=== PATIENT | male | born 1955 | race Caucasian/White ===

== ENCOUNTER 2017-03-19 14:23 | Inpatient (IN) | payer OTHER ==
[~2017-03-19] VITALS: Ht 177.8 cm; Wt 79.0 kg
[2017-03-19 15:02] LABS: HEMATOCRIT 45.2 % (38.0-50.0); MCH 35.9 PG (29.0-34.0); MCHC 35.6 G/DL (30.0-36.0); MCV 100.7 FL (86-99); MEAN PLAT.VOLUME 10.6 uM^3 (9.0-12.4); PLATELET COUNT 230 K/uL (156-360); RBC DIS.WIDTH-CV 14.9 % (11.8-14.6); RBC DIS.WIDTH-SD 55.7 % (39-53); RED BLOOD COUNT 4.49 M/uL (4.00-5.50)
[2017-03-19 15:17] LABS: ALKALINE PHOSPHATASE 86 IU/L (3-129); ANION GAP 11 MEQ/L (2-14); CHLORIDE 109 mEq/L (99-109); GFR ESTIMATE (CALCULATED) > 59 mL/min/ (58.99-99999); GLUCOSE 91 mg/dL (70-99); POTASSIUM 3.7 mEq/L (3.7-5.4); SODIUM 144 mEq/L (136-147); TOTAL BILIRUBIN 0.4 mg/dL (0.0-1.0)
[2017-03-19 15:18] LABS: UREA NITROGEN (BUN) 8 mg/dL (9-23)
[2017-03-19 15:19] LABS: DIRECT BILIRUBIN 0.2 mg/dL (0.0-0.3)
[2017-03-19 15:35] LABS: MAGNESIUM 2.1 mg/dL (1.3-2.7); SERUM ETHYL ALCOHOL 358 mg/dL
[2017-03-19 17:28] LABS: TROP-I INTERPRETATION NEGATIVE; TROPONIN-I < 0.01 ng/mL (0.0-0.30)
[2017-03-19 20:03] LABS: ADD MIUA? NO; BILIRUBIN NEGATIVE; BLOOD NEGATIVE; COLOR YELLOW ((YELLOW)); GLUCOSE (STRIP) 50; KETONES 5; LEUKOCYTES NEGATIVE; NITRITE NEGATIVE; PROTEIN (STRIP) NEGATIVE; SPECIFIC GRAVITY 1.012 (1.000-1.030); UCUL ADDED? NO; UROBILINOGEN 0.2 MG/DL (0.2-1.0)
[2017-03-19 20:14] LABS: AMPHETAMINE NEGATIVE (500 ng/mL); BARBITURATES NEGATIVE (200 ng/mL); BENZODIAZEPINES NEGATIVE (150 ng/mL); COCAINE NEGATIVE (150 ng/mL); INTERNAL CONTROLS VALID? YES; METHADONE NEGATIVE (200 ng/mL); METHAMPHETAMINE NEGATIVE (500 ng/mL); OPIATES (MORPHINE) NEGATIVE (100 ng/mL); OXYCODONE NEGATIVE (100 ng/mL); PHENCYCLIDINE NEGATIVE (25 ng/mL); PROPOXYPHENE NEGATIVE (300 ng/mL); THC CANNABINOIDS NEGATIVE (50 ng/mL); TRICYCLIC ANTIDEPRESSANTS NEGATIVE (300 ng/mL)
[2017-03-20 01:52] VITALS: BP 159/85
[2017-03-20 06:56] LABS: ALKALINE PHOSPHATASE 79 IU/L (3-129); ANION GAP 15 MEQ/L (2-14); CHLORIDE 106 MEQ/L (99-109); GFR ESTIMATE (CALCULATED) > 59 mL/min/ (58.99-99999); GLUCOSE 66 mg/dL (70-99); POTASSIUM 3.9 MEQ/L (3.7-5.4); SAMPLE HEMOLYSIS CHECK 0; SAMPLE ICTERIC CHECK 0; SAMPLE LIPEMIA CHECK 0; SODIUM 142 MEQ/L (136-147); UREA NITROGEN (BUN) 10 mg/dL (9-23)
[2017-03-20 07:27] VITALS: BP 149/75
[2017-03-20 11:39] VITALS: BP 152/80
[2017-03-20 16:19] VITALS: BP 165/81
[2017-03-20 19:26] VITALS: BP 180/86
[2017-03-21 00:24] VITALS: BP 161/89
[2017-03-21 03:50] VITALS: BP 159/80
[2017-03-21 06:59] LABS: EOSINOPHIL (%) 0.6 % (0-5); EOSINOPHIL COUNT 0.1 K/uL (0-0.3); HEMATOCRIT 42.6 % (38.0-50.0); IMMATURE GRANULOCYTE (%) 0.2 % (0.0-0.7); INSTRUMENT ABS NEUTROPHIL CT 6.6 K/uL; LYMPHOCYTE COUNT 1.9 K/uL (1.0-2.8); MCH 36.1 PG (29.0-34.0); MCHC 35.2 G/DL (30.0-36.0); MCV 102.7 FL (86-99); MONOCYTE (%) 9.3 % (3-12); MONOCYTE COUNT 0.9 K/uL (0-0.8); NEUTROPHIL (%) 69.4 % (45-76); NEUTROPHIL COUNT 6.6 K/uL (1.8-6.4); PLATELET COUNT 179 K/uL (156-360); RBC DIS.WIDTH-CV 14.6 % (11.8-14.6); RBC DIS.WIDTH-SD 55.4 % (39-53); RED BLOOD COUNT 4.15 M/uL (4.00-5.50); WHITE BLOOD COUNT 9.6 K/uL (4.1-10.2)
[2017-03-21 07:20] VITALS: BP 159/94
[2017-03-21 07:35] LABS: ANION GAP 11 MEQ/L (2-14); CHLORIDE 102 MEQ/L (99-109); GFR ESTIMATE (CALCULATED) > 59 mL/min/ (58.99-99999); POTASSIUM 4.2 MEQ/L (3.7-5.4); SAMPLE HEMOLYSIS CHECK 0; SAMPLE ICTERIC CHECK 0; SAMPLE LIPEMIA CHECK 0; SODIUM 140 MEQ/L (136-147); UREA NITROGEN (BUN) 10 mg/dL (9-23)
[2017-03-21 07:36] LABS: GLUCOSE 107 mg/dL (70-99)
== END 2017-03-21 10:25 | disposition home or self-care (01) | DRG 92 ==
LOC: EME 14:23 → EDOF 21:26 → 5SOUTH 21:26 → ENRESERV 21:28 → 5SOUTH 03-20 01:42
PROVIDERS: Emergency Medicine; Internal Medicine; Physician Assistant Medical
DX: R27.8 Other lack of coordination (principal); J40 Bronchitis, not specified as acute or chronic; F10.239 Alcohol dependence with withdrawal, unspecified; E51.2 Wernicke's encephalopathy; H51.21 Internuclear ophthalmoplegia, right eye; H54.61 Unqualified visual loss, right eye, normal vision left eye; H55.00 Unspecified nystagmus; Y90.8 Blood alcohol level of 240 mg/100 ml or more; F10.229 Alcohol dependence with intoxication, unspecified; F17.200 Nicotine dependence, unspecified, uncomplicated; G31.9 Degenerative disease of nervous system, unspecified; I10 Essential (primary) hypertension; H49.9 Unspecified paralytic strabismus; Z83.3 Family history of diabetes mellitus; Z80.43 Family history of malignant neoplasm of testis; Z91.81 History of falling; G31.2 Degeneration of nervous system due to alcohol
CPT/HCPCS: 70450; 70551; 71020; 80048; 80053; 80076; 81003; 82140; 83735; 84443; 84484; 85025; 85027; 93005; 94760; 99202; G0480; J1650; J3411; J3475; J7030